=== PATIENT | male | born 1965 | race African-American/Black ===

== ENCOUNTER 2017-12-25 01:36 | Emergency (ER) | payer OTHER ==
[2017-12-25 02:24] LABS: Acetaminophen Less than 6.0 mcg/mL (10.0-30.0); Alcohol 20 mg/dL (Less than 10); Salicylate Less than 8.0 mg/dL (15.0-30.0)
[2017-12-25 02:27] LABS: ALT (SGPT) 17 U/L (8-55); AST (SGOT) 27 U/L (5-34); Albumin 3.8 g/dL (3.5-5.0); Alkaline Phosphatase 50 U/L (40-150); Anion Gap 17 mmol/L (10-20); BUN (Urea Nitrogen) 11 mg/dL (8.4-25.7); Band 3 % (5-11); Bilirubin, Total 0.7 mg/dL (0.2-1.2); Calc. Creatinine Clearance 0 mL/min (70-130); Calcium 9.1 mg/dL (7.8-10.44); Carbon Dioxide 20 mmol/L (22-29); Chloride 102 mmol/L (98-107); Eosinophils 1 % (0-10); Estimated GFR-MDRD Greater than 90; Globulin 3.6 g/dL (2.4-3.5); Glucose 95 mg/dL (70-105); Lymphocytes 27 % (21-51); MDiff Complete? YES; Mean Corpuscular HGB CONC 33.1 g/dL (32.0-36.0); Mean Corpuscular Hemoglobin 33.5 pg (27.0-31.0); Mean Platelet Volume 6.5 fL (7.4-10.4); Monocytes 16 % (0-10); Neutrophil 53 % (42-75); PLT Morphology Comment Appears Adequate; Platelet Count 335 thou/uL (130-400); Protein, Total 7.4 g/dL (6.0-8.3); RBC Distribution Width 11.3 % (11.5-14.5); RBC Morphology Normal; Red Blood Cell (RBC) Count 4.18 mill/uL (4.70-6.10); Sodium 135 mmol/L (136-145); White Blood Cell (WBC) Count 7.9 thou/uL (4.8-10.8)
[2017-12-25 03:15] LABS: Bilirubin Negative (Negative); Blood, Urine Trace (Negative); Clarity Clear (Clear); Glucose, Urine (Dipstick) Negative (Negative); Leukocyte Negative (Negative); Nitrite Negative (Negative); Protein, Urine (Dipstick) 30 mg/dL (Neg-Trace); Urobilinogen > or = 8.0 mg/dL (0.2-1.0)
[2017-12-25 03:16] LABS: Specific Gravity, Urine 1.024 (1.002-1.036)
[2017-12-25 03:17] LABS: Amphetamine Not Detected (NotDetected); Cocaine Metabolite Screen Not Detected (NotDetected); Methamphetamine Not Detected (NotDetected); Opiate Screen Not Detected (NotDetected); Phencyclidine (PCP) Not Detected (NotDetected); THC/Cannabinoid Screen Not Detected (NotDetected)
[2017-12-25 03:18] LABS: Barbiturates Screen Not Detected (NotDetected); Benzodiazepine Screen Detected (NotDetected); Medtox Control Line Valid? VALID (VALID); Methadone Not Detected (NotDetected); Oxycodone Screen Not Detected (NotDetected); Tricyclic Screen Not Detected (NotDetected)
[2017-12-25 03:21] LABS: Bacteria/HPF Rare-Few HPF (None Seen); RBC/HPF 0-3 HPF (0-3); Squamous Epithelial 0-3 HPF (0-3); WBC/HPF 0-3 HPF (0-3)
[2017-12-25] MEDS ORDERED: Ziprasidone 20 MG CAP ONE (07:50)
[2017-12-25] MEDS ORDERED: diphenhydrAMINE 50 MG/ML VIAL ONE (08:29)
== END 2017-12-25 13:29 ==
LOC: NAV ERS 01:36
DX: F23 Brief psychotic disorder (principal); I10 Essential (primary) hypertension; F41.9 Anxiety disorder, unspecified; F31.9 Bipolar disorder, unspecified; G47.00 Insomnia, unspecified; F43.12 Post-traumatic stress disorder, chronic
CPT/HCPCS: 80053; 80306; 80307; 81003; 81015; 84443; 85025; 96372; J1200

== ENCOUNTER 2018-03-31 12:29 | Outpatient (CLI) | payer OTHER ==
--- NOTE | 2018-03-31 13:42 | RAD ---
TWO VIEWS CHEST: Date: 03-31-18 Provided Clinical History: Disability evaluation. FINDINGS: Comparison 10-15-14 Cardiac and mediastinal silhouette is within normal limits. Lungs appear clear. There is no pleural f luid or pneumothorax apparent. IMPRESSION: No evidence for an acute cardiopulmonary process. POS: [facility]
== END 2018-03-31 12:30 | disposition home or self-care (01) ==
LOC: NAV RAD 12:29
PROVIDERS: ATTEND Family Medicine
DX: I10 Essential (primary) hypertension (principal); M25.512 Pain in left shoulder
CPT/HCPCS: 71046

== ENCOUNTER 2019-07-29 21:20 | Emergency (ER) | payer OTHER ==
[2019-07-29 22:20] LABS: ALT (SGPT) 23 U/L (8-55); AST (SGOT) 118 U/L (5-34); Albumin 3.2 g/dL (3.5-5.0); Alcohol 311 mg/dL (Less than 10); Alkaline Phosphatase 90 U/L (40-110); Anion Gap 17 mmol/L (10-20); BUN (Urea Nitrogen) 7 mg/dL (8.4-25.7); Bilirubin, Total 0.8 mg/dL (0.2-1.2); Calc. Creatinine Clearance 0 mL/min (70-130); Calcium 8.1 mg/dL (7.8-10.44); Carbon Dioxide 23 mmol/L (22-29); Chloride 93 mmol/L (98-107); Estimated GFR-MDRD Greater than 90; Globulin 4.1 g/dL (2.4-3.5); Glucose 110 mg/dL (70-105); Protein, Total 7.3 g/dL (6.0-8.3); Sodium 130 mmol/L (136-145)
[2019-07-29 22:22] LABS: Band 2 % (5-11); Hemoglobin 13.7 g/dL (14.0-18.0); Lymphocytes 64 % (21-51); MDiff Complete? YES; Macrocytosis MODERATE=16-30 cells (100X) (0-5/hpf); Mean Corpuscular HGB CONC 33.6 g/dL (32.0-36.0); Mean Corpuscular Hemoglobin 35.8 pg (27.0-31.0); Mean Platelet Volume 7.9 fL (7.4-10.4); Monocytes 6 % (0-10); Neutrophil 28 % (42-75); Platelet Count 167 thou/uL (130-400); Platelet Morphology Comment Appears Adequate; RBC Distribution Width 11.9 % (11.5-14.5); Red Blood Cell (RBC) Count 3.83 mill/uL (4.70-6.10); White Blood Cell (WBC) Count 7.5 thou/uL (4.8-10.8)
[2019-07-29 22:26] LABS: Potassium 2.7 mmol/L (3.5-5.1)
[2019-07-29] MEDS ORDERED: Sodium Chloride 0.9% 1,000 ML ONE (22:40)
[2019-07-29] MEDS ORDERED: Potassium Chloride 20 MEQ/100 ML PREMIX BAG ONE (22:40)
[2019-07-29] MEDS ORDERED: Thiamine HCl 200 MG/2 ML VIAL ONE (22:49)
[2019-07-29 22:55] LABS: Magnesium 1.5 mg/dL (1.6-2.6)
[2019-07-30] MEDS ORDERED: Magnesium 2 GM/50 ML BAG (IN WATER) ONE (00:54)
[2019-07-30] MEDS ORDERED: Potassium Chloride 20 MEQ TAB ONE (02:29)
== END 2019-07-30 03:37 | disposition short-term general hospital (02) ==
LOC: NAV ERS 21:20
DX: F10.129 Alcohol abuse with intoxication, unspecified (principal); E87.6 Hypokalemia; M54.5 Low back pain; I10 Essential (primary) hypertension; F41.9 Anxiety disorder, unspecified; F31.9 Bipolar disorder, unspecified; Y90.8 Blood alcohol level of 240 mg/100 ml or more; F43.10 Post-traumatic stress disorder, unspecified; F17.210 Nicotine dependence, cigarettes, uncomplicated; Z79.899 Other long term (current) drug therapy
CPT/HCPCS: 80053; 80307; 82550; 83735; 84443; 85025; 93005; 96365; 96366; 96367; 96372; J3411; J3475; J3480; J7050